=== PATIENT | male | born 1955 | race Caucasian/White ===

== ENCOUNTER → 2016-09-13 | Outpatient (CLI) | payer OTHER ==
--- NOTE | 2016-09-20 16:38 | PCVCIMAG ---
APPROVED REPORT Study performed: 09/13/2016 15:26:00 EXAM: Comprehensive 2D, Doppler, and color-flow Echocardiogram Status: routine Other Information Study Quality: Adequate Indications Chest Pain Hypertension/HDD 2D Dimensions LVEF(%): 66.76 (>50%) IVSd: 10.83 (7-11mm) LVDd: 47.92 mm PWd: 9.82 (7-11mm)Ascending Ao: 41.69 (22-36mm) LVDs: 30.21 (25-40mm) Left Atrium: 36.29 (27-40mm) Aortic Root: 37.56 mm LV Single Plane 4CH: 66.76 % LV Single Plane 2CH: 76.12 %Grady's LVEF: 71.44 % Biplane EF: 71.8 % Volumes Left Atrial Volume (Systole) Single Plane 4CH: 40.93 mLSingle Plane 2CH: 55.09 mL LA ESV Index: 52.00 mL/m2 Aortic Valve AoV Peak Tanvir.: 1.61 m/s AO Peak Gr.: 10.42 mmHgLVOT Max P.57 mmHg LVOT Max V: 1.28 m/s Mitral Valve E/A Ratio: 1.1 MV Decel. Time: 266.88 ms MV E Max Tanvir.: 0.70 m/s MV A Tanvir.: 0.65 m/s IVRT: 107.27 ms Pulmonary Valve PV Peak Tanvir.: 1.29 m/sPV Peak Gr.: 6.68 mmHg Pulmonary Vein P Vein S: 0.32 m/sP Vein A: 0.35 m/s P Vein D: 0.43 m/sP Vein A Dur.: 145.3 msec P Vein S/D Ratio: 0.74 Left Ventricle The left ventricle is normal size. There is normal LV segmental wall motion. There is normal left ventricular wall thickness. Left ventricular systolic function is normal. The left ventricular ejection fraction is within the normal range. LVEF is 60-65%. Grade I - abnormal relaxation pattern. Right Ventricle The right ventricle is normal size. The right ventricular systolic function is normal. Atria The left atrium size is normal. The right atrium size is normal. Aortic Valve The aortic valve is normal in structure. No aortic regurgitation is present. There is no aortic valvular stenosis. Mitral Valve The mitral valve is normal in structure. There is no mitral valve regurgitation noted. No evidence of mitral valve stenosis. Tricuspid Valve The tricuspid valve is normal in structure. There is no tricuspid valve regurgitation noted. Pulmonic Valve The pulmonary valve is normal in structure. There is no pulmonic valvular regurgitation. Great Vessels Ascending aortic root is mildly dilated to 4.3 cm. IVC is normal in size and collapses with >50% inspiration Pericardium There is no pericardial effusion. <Conclusion> The left ventricle is normal size. LVEF is 60-65%. The aortic valve is normal in structure. The mitral valve is normal in structure. The tricuspid valve is normal in structure. The pulmonary valve is normal in structure. Ascending aortic root is mildly dilated to 4.3 cm.
== END ==
LOC: PCVCIMAG 16:00
PROVIDERS: ATTEND Internal Medicine
DX: I35.0 Nonrheumatic aortic (valve) stenosis (principal); I10 Essential (primary) hypertension
CPT/HCPCS: 93306

== ENCOUNTER → 2016-09-15 | Outpatient (CLI) | payer OTHER ==
--- NOTE | 2016-09-20 15:23 | PCVCIMAG ---
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 Time of rest injection: Date: 09/15/2016 Time of rest imaging: Date: 09/15/2016 Exercise Stress At peak stress, the patient was injected intravenously with 34.1mCi of Tc-99m Sestamibi. Time of stress injection: Date: 09/15/2016 Time of stress imaging: Date: 09/15/2016 Heart Rate at time of stress injection: 166 bpm. Patient continued to exercise for 1 minute(s). Gated Stress SPECT was performed 45 minutes after stress injection. The images were gated to evaluate regional wall motion and calculate left ventricular ejection fraction. Stress Test Details Stress Test: Exercise stress testing was performed using a Lauri protocol. HR Resting HR: 63 bpmMax Heart Rate (APMHR): 161 bpm Max HR Achieved: 166 bpmTarget HR (85% APMHR): 136 bpm % of APMHR: 103 Recovery HR: 96 bpm HR response to stress: Normal HR response to stress BP Resting BP: 143/78 mmHg Max BP: 186/88 mmHg Recovery BP: 139/70 mmHg ECG Resting ECG: Sinus Bradycardia Stress ECG: Sinus Rhythm ST Change: None Arrhythmia: VPC's Recovery ECG: Sinus Rhythm Clinical Reason for Termination: Dyspnea; Fatigue Stress Symptoms: Dyspnea; Fatigue Exercise duration: 10 min 41 sec Exercise capacity: 13.4 METs Overall Exercise Capacity for Age: Good Scale: Active Stress ECG Conclusion 1. SUBJECTIVELY NEGATIVE FOR ISCHEMIA 2. ELECTROCARDIOGRAPHICALLY NEGATIVE FOR ISCHEMIA 3. ADEQUATE FUNCTIONAL CAPACITY <Conclusion> 1. SUBJECTIVELY NEGATIVE FOR ISCHEMIA 2. ELECTROCARDIOGRAPHICALLY NEGATIVE FOR ISCHEMIA 3. ADEQUATE FUNCTIONAL CAPACITY
== END | disposition home or self-care (01) ==
LOC: PCVCIMAG 09:08
PROVIDERS: ATTEND Internal Medicine
DX: I10 Essential (primary) hypertension (principal); E78.5 Hyperlipidemia, unspecified; Z87.891 Personal history of nicotine dependence; Z79.899 Other long term (current) drug therapy; Z88.1 Allergy status to other antibiotic agents
CPT/HCPCS: 78452; 93017; A9500